=== PATIENT | female | born 2000 | race African-American/Black ===

== ENCOUNTER 2020-08-13 16:57 | Emergency (ER) | payer MEDICAID ==
[~2020-08-13] VITALS: Ht 160 cm; Wt 102.0 kg
[2020-08-13 17:07] VITALS: BP 113/82
== END 2020-08-13 21:26 | disposition left against medical advice (07) ==
LOC: ER 16:57
DX: R05 Cough (principal); R11.10 Vomiting, unspecified; Z53.21 Procedure and treatment not carried out due to patient leaving prior to being seen by health care provider

== ENCOUNTER 2023-07-26 00:52 | Emergency (ER) | payer MEDICAID, OTHER ==
[2023-07-26] MEDS: SODIUM CHLORIDE 0.9% 1,000 ML IV ONE (01:28)
[2023-07-26 01:36] LABS: EOSINOPHILS % 3.7 % (0.0-5.0); HEMATOCRIT. 36.6 % (36.0-48.0); HEMOGLOBIN. 12.1 g/dL (12.0-16.0); LYMPHOCYTES % 39.8 % (20.0-50.0); MEAN CORPUSCULAR HEMOGLOBIN 29.7 pg (28.0-32.0); MEAN CORPUSCULAR HGB CONC 33.1 g/dL (31.0-37.0); MEAN CORPUSCULAR VOLUME 89.9 fL (81.0-99.0); MEAN PLATELET VOLUME 8.6 fl (7.4-10.4); MONOCYTES % 8.6 % (2.0-8.0); NEUTROPHILS % 46.9 % (40.0-76.0); PLATELET 289 x1000/uL (130-400); RED BLOOD CELL COUNT 4.07 mill/uL (4.2-5.4); RED CELL DISTRIBUTION WIDTH 14.1 % (11.6-14.6); WHITE BLOOD COUNT 8.2 x1000/uL (4.5-11.0)
[2023-07-26 01:42] LABS: CHLORIDE 107 mEq/L (98-107); POTASSIUM 3.7 mEq/L (3.5-5.1); SODIUM 139 mEq/L (136-145)
[2023-07-26 01:43] LABS: CALCIUM 9.3 mg/dL (8.7-10.4); CARBON DIOXIDE 26 mEq/L (21-32)
[2023-07-26 01:48] LABS: GLUCOSE 101 mg/dL (70-105); UREA NITROGEN BLOOD 17 mg/dL (9-23)
[2023-07-26 01:50] LABS: ACETAMINOPHEN < 2 ug/mL (10-30); HCG SCREEN NEGATIVE
[2023-07-26 01:52] LABS: ETHANOL BLOOD < 10 mg/dL (<10); TROPONIN I HIGH SENSITIVITY < 4 ng/L (3.0-34)
[2023-07-26 03:47] LABS: *AMPHETAMINES SCREEN URINE PRESUMPTIVE POSITIVE (NEGATIVE); *BARBITURATES SCREEN URINE NEGATIVE (NEGATIVE); *BENZODIAZEPINES SCREEN URINE NEGATIVE (NEGATIVE); *COCAINE SCREEN URINE NEGATIVE (NEGATIVE); CANNABINOID URINE SCREEN PRESUMPTIVE POSITIVE (NEGATIVE); ECSTASY MDMA SCREEN URINE CONF.TEST INDICATED (NEGATIVE); METHADONE URINE SCREEN NEGATIVE (NEGATIVE); OPIATES URINE SCREEN NEGATIVE (NEGATIVE); PHENCYCLIDINE URINE SCREEN NEGATIVE (NEGATIVE)
[2023-07-26 05:55] VITALS: BP 121/95; PULSE 85; RESP 20
== END 2023-07-26 05:56 | disposition home or self-care (01) ==
LOC: ER 00:52
DX: F19.10 Other psychoactive substance abuse, uncomplicated (principal)
CPT/HCPCS: 80305; 80048; 80307; 80329; 80320; 84703; 85025; 84484; 36415; 96360; 99283; J7030; G0480

== ENCOUNTER 2023-10-04 05:02 | Emergency (ER) | payer OTHER ==
[~2023-10-04] VITALS: Ht 170.2 cm; Wt 70.0 kg
[2023-10-04 05:04] VITALS: O2SAT 100
[2023-10-04 06:16] LABS: BASOPHILS % 0.2 % (0.0-2.0); EOSINOPHILS % 0.3 % (0.0-5.0); HEMATOCRIT. 36.9 % (36.0-48.0); LYMPHOCYTES % 11.9 % (20.0-50.0); MEAN CORPUSCULAR HEMOGLOBIN 29.1 pg (28.0-32.0); MEAN CORPUSCULAR HGB CONC 32.4 g/dL (31.0-37.0); MEAN CORPUSCULAR VOLUME 89.7 fL (81.0-99.0); MEAN PLATELET VOLUME 8.3 fl (7.4-10.4); MONOCYTES % 4.2 % (2.0-8.0); NEUTROPHILS % 83.4 % (40.0-76.0); PLATELET 238 x1000/uL (130-400); RED BLOOD CELL COUNT 4.12 mill/uL (4.2-5.4); RED CELL DISTRIBUTION WIDTH 14.1 % (11.6-14.6); WHITE BLOOD COUNT 8.3 x1000/uL (4.5-11.0)
[2023-10-04 06:23] LABS: CHLORIDE 108 mEq/L (98-107); POTASSIUM 3.8 mEq/L (3.5-5.1); SODIUM 136 mEq/L (136-145)
[2023-10-04 06:24] LABS: CARBON DIOXIDE 22 mEq/L (21-32)
[2023-10-04 06:25] LABS: CALCIUM 9.1 mg/dL (8.7-10.4)
[2023-10-04 06:29] LABS: CREATININE 0.9 mg/dL (0.6-1.0)
[2023-10-04 06:30] LABS: GLUCOSE 145 mg/dL (70-105); UREA NITROGEN BLOOD 10 mg/dL (9-23)
[2023-10-04 06:35] LABS: HCG SCREEN NEGATIVE
[2023-10-04] MEDS: ACETAMINOPHEN 325MG TABLET PO STA (06:50)
[2023-10-04] MEDS: ONDANSETRON 4MG ODT PO STA (06:50)
[2023-10-04 07:10] VITALS: BP 122/67; PULSE 87; RESP 18; TEMP 98.2
[2023-10-04] MEDS ORDERED: IBUP-2028 PO (07:10)
[2023-10-04] MEDS ORDERED: ONDA4TAB50 PO (07:10)
== END 2023-10-04 07:18 | disposition home or self-care (01) ==
LOC: EDBD → ER 05:02
DX: R10.30 Lower abdominal pain, unspecified (principal); J45.909 Unspecified asthma, uncomplicated
CPT/HCPCS: 99283; 80048; 84703; 83690; 85025; 36415; Q0162

== ENCOUNTER 2023-10-04 22:34 | Emergency (ER) | payer OTHER ==
[~2023-10-04] VITALS: Ht 167.6 cm; Wt 82.0 kg
[~2023-10-04 22:34] MED LIST: IBUP-2028 PO; ONDA4TAB50 PO
[2023-10-04 22:40] VITALS: BP 137/74; PULSE 95; RESP 16; TEMP 98.7; O2SAT 98
== END 2023-10-04 23:07 | disposition left against medical advice (07) ==
LOC: ER 22:34
DX: R11.2 Nausea with vomiting, unspecified (principal); Z53.21 Procedure and treatment not carried out due to patient leaving prior to being seen by health care provider
CPT/HCPCS: 93005